=== PATIENT | female | born 1985 | race Caucasian/White ===

== ENCOUNTER 2020-08-04 10:55 | Emergency (ER) | payer SELFPAY ==
[~2020-08-04] VITALS: Ht 157.5 cm; Wt 65.0 kg
[2020-08-04 11:00] VITALS: BP 110/65
--- NOTE | 2020-08-04 11:00 | NUR ---
pt bib ems for etoh intoxication. vss
--- NOTE | 2020-08-04 12:55 | NUR ---
Patient given discharge instructions and they have confirmed that they understand the instructions. Patient ambulatory with steady gait.
== END 2020-08-04 12:51 ==
LOC: ED 12:50
DX: F10.229 Alcohol dependence with intoxication, unspecified (principal); Y90.0 Blood alcohol level of less than 20 mg/100 ml
CPT/HCPCS: 99283